=== PATIENT | male | born 1990 | race African-American/Black ===

== ENCOUNTER 2020-12-31 11:43 | Emergency (ER) | payer OTHER, SELFPAY ==
[2020-12-31 12:40] VITALS: BP 145/89; PULSE 64; RESP 18; TEMP 36.3; O2SAT 99; BMI 37.8
--- NOTE | 2020-12-31 13:24 | HMH.EDUTC ---
[facility] Disposition Clinical Impression: Nausea & vomiting Qualifiers: Vomiting type: unspecified Vomiting Intractability: unspecified Qualified Code(s): R11.2 - Nausea with vomiting, unspecified Disposition: Home, Self-Care Condition on Discharge: Good Instructions: Nausea and Vomiting-Adult, DI for Nausea -- Adult, Ondansetron Additional Instructions: Drink extra fluids with and between meals. If you have difficulty drinking, try very small amounts of water or suck on ice chips. ? Avoid fruit juices, as these do not replace minerals and can actually increase diarrhea. ? Children and adults can use sports drinks to replenish electrolytes. Younger children and infants should use products formulated for children, like oral rehydration solutions. ? Eat food in small amounts and let your stomach recover. ? Get lots of rest. You may feel tired or weak. ? No greasy or fried foods for the next 24-48 hours BRAT diet Bananas Rice Apples and [place] ? Make sure to drink plenty of liquids ? Return if needed ? Straight to ER if any life threatening symptoms ? Zofran as prescribed ? Follow up with family doctor in the next 48-72 hours if no improvement or any worsening of symptoms Prescriptions: Ondansetron [Zofran 4mg ODT] 4 mg PO TIDP PRN #12 tab PRN Reason: Nausea Prescription Printed Referrals: Provider,Referral, MD [Primary Care Provider] - As needed Forms: Work/School Release Time of Disposition: 13:27 Medical Decision Making - Fede Inquiry Pt receiving controlled substance: No Fede was queried for this patient: No Vital Signs: 12/31/20 12:40 Temperature 97.3 F L Temperature Source Oral Pulse Rate [Right Brachial] 64 Respiratory Rate 18 Blood Pressure [Right Arm] 145/89 H Blood Pressure Mean [Right Arm] 107 Blood Pressure Source [Right Arm] Automatic Cuff Blood Pressure Position [Right Arm] Sitting 02 Sat by Pulse Oximetry 99 Oxygen Delivery Method Room Air [facility] HPI - General Stated complaint: nausea, vomiting Time Seen by Provider: 12/31/20 13:24 Mode of Arrival: Ambulatory Source of Information: Patient Limitations: No Limitations Description of Symptoms (Recalled from Triage Doc. by RN): PATIENT C/O VOMITING LAST NIGHT AND THIS MORNING. HEENT Symptoms (Recalled from RN notes): No Resp Symptoms (Recalled from RN notes): No Skin Symptoms (Recalled from RN notes): No MS Symptoms (Recalled from RN notes): No Functional Status (Recalled from RN notes): WNL - History of Present Illness Provider Complaint: Patient state that he eat some english food yesterday and after that he got sick at his stomach State that he thinks he may have got food poisoning State that this morning vomited once and but has still been having nausea States that he has been drinking ok but afraid to eat due to the vomiting - Related Data Previous Rx's Medication Instructions Recorded Ondansetron [Zofran 4mg ODT] 4 mg PO TIDP PRN #12 tab 12/31/20 Allergies Allergy/AdvReac Type Severity Reaction Status Date / Time No Known Allergies Allergy Verified 10/11/18 15:43 - Worker's Comp Is this a Worker's Comp case?: No [facility] History - Hepatitis A Screen Drug use history?: No High risk sexual behaviors?: No History of sexually transmitted infection?: No Currently employed?: No Childcare worker?: No Do you have indoor plumbing?: Yes Do you have electricity?: Yes Attestation statement:: This patient has been screened for Hepatitis A risk factors. I have reviewed the patient's past medical history: Yes - Social History Alcohol Intake: never Occupational Status: employed ROS Obtained: Yes All systems reviewed & no additional complaints, Yes Systems reviewed as appropriate & no additional complaints - Constitutional Constitutional: Reports system reviewed and no additional complaints, except as docu, Denies body ache, Denies chills, Denies fever(s) - ENT Ears, Nose, Mouth, and Throat: Reports system re
[2020-12-31 13:27] VITALS: BP 145/89; PULSE 64; RESP 18; TEMP 36.3; O2SAT 99
== END 2020-12-31 13:34 | disposition home or self-care (01) ==
PROVIDERS: Emergency Provider Nurse Practitioner
DX: R11.2 Nausea with vomiting, unspecified (principal)
CPT/HCPCS: 99202; G0463

== ENCOUNTER 2022-07-24 03:53 | Emergency (ER) | payer SELFPAY ==
[2022-07-24 03:55] VITALS: BP 133/77; PULSE 89; RESP 17; TEMP 36.6; O2SAT 99; BMI 25.8
[2022-07-24 04:00] VITALS: BP 133/77; PULSE 100; O2SAT 100
[2022-07-24 04:30] VITALS: BP 142/120; PULSE 84; RESP 20; O2SAT 100
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
[2022-07-24 05:08] VITALS: BP 133/77; PULSE 88; RESP 16; TEMP 36.6; O2SAT 100
== END 2022-07-24 05:08 ==
PROVIDERS: Emergency Provider Emergency Medicine
DX: Z02.89 Encounter for other administrative examinations (principal)
CPT/HCPCS: 99282; 99284